=== PATIENT | male | born 1950 | race Caucasian/White ===

== ENCOUNTER 2017-10-23 19:03 | Emergency (ER) | payer MEDICARE, OTHER ==
[~2017-10-23] VITALS: Ht 180.3 cm; Wt 100.0 kg
[2017-10-23 19:13] VITALS: Ht 180.3 cm; Wt 100.0 kg
[2017-10-23] MEDS ORDERED: METOPROLOL TART50 MG PO (19:20)
[2017-10-23] MEDS ORDERED: XARELTO15 MG PO (19:20)
[2017-10-23] MEDS ORDERED: BETAPACE 120 M120 MG PO (19:21)
[2017-10-23 19:31] LABS: BASOPHILS 0.5 % (0-2); EOSINOPHILS 2.7 % (0-7); HEMATOCRIT 41.4 % (42.0-54.0); HEMOGLOBIN 14.8 g/dL (13.5-17.5); LYMPHOCYTES 41.9 % (15-50); MCH 35.8 pg (26.0-34.0); MCHC 35.7 g/dL (31.0-37.0); MCV 100.2 fL (80.0-100.0); MEAN PLATELET VOLUME 10.3 fL (7.4-10.4); MONOCYTES 11.3 % (2-11); NEUTROPHILS 43.6 % (40-80); PLATELET COUNT 173 10x3/uL (130-400); RBC 4.13 10x6/uL (4.20-6.10); RDW 12.8 % (11.5-14.5); WBC 5.5 10x3/uL (4.8-10.8)
[2017-10-23 19:40] LABS: APTT 28.5 SECONDS (22.8-39.4); INR 1.02 (0.85-1.17)
[2017-10-23 19:58] LABS: ALBUMIN 3.6 g/dL (3.4-5.0); ALKALINE PHOSPHATASE 53 U/L (46-116); ALT (SGPT) 22 U/L (10-68); BILIRUBIN - TOTAL 0.36 mg/dL (0.2-1.3); CALC OSMOLALITY 277 mosm/kg (275-300); CALCIUM 8.6 mg/dL (8.5-10.1); CARBON DIOXIDE 24.6 mmol/L (21.0-32.0); CHLORIDE - SERUM 104 mmol/L (98-107); GLUCOSE 115 mg/dL (74-106); POTASSIUM - SERUM 3.6 mmol/L (3.5-5.1); PROTEIN - SERUM 7.1 g/dL (6.4-8.2); SODIUM 140 mmol/L (136-145); UREA NITROGEN 8 mg/dL (7-18); eGFR NON AFRICAN AMERICAN 79 mL/min (90-120)
[2017-10-23 20:47] LABS: APPEARANCE CLEAR (CLEAR); BILIRUBIN NEGATIVE (NEGATIVE); COLOR YELLOW (YELLOW); GLUCOSE NEGATIVE (NEGATIVE); KETONE NEGATIVE (NEGATIVE); NITRITE NEGATIVE (NEGATIVE); PROTEIN NEGATIVE (NEGATIVE); SPECIFIC GRAVITY 1.015 (1.005-1.020); UROBILINOGEN NORMAL (NORMAL)
[2017-10-23 21:00] VITALS: BP 138/85
== END 2017-10-23 21:00 | disposition other institution (70) ==
LOC: D.ER 19:03 → EDBD 19:03 → D.ER 21:00
PROVIDERS: Emergency Medicine
DX: I66.01 Occlusion and stenosis of right middle cerebral artery (principal); R47.01 Aphasia; I48.91 Unspecified atrial fibrillation; I10 Essential (primary) hypertension

== ENCOUNTER 2017-11-01 18:17 | Emergency (ER) | payer MEDICARE ==
[~2017-11-01] VITALS: Ht 180.3 cm; Wt 75.0 kg
[~2017-11-01 18:17] MED LIST: BETAPACE 120 M120 MG PO; METOPROLOL TART50 MG PO; XARELTO15 MG PO
[2017-11-01 18:21] VITALS: Ht 180.3 cm; Wt 75.0 kg
[2017-11-01] MEDS ORDERED: ACETAMINOP80 MG/0.8 PO (18:37)
[2017-11-01] MEDS ORDERED: ELIQUIS2.5 MG PO (18:37)
[2017-11-01] MEDS ORDERED: ELIQUIS5 MG PO (18:38)
[2017-11-01] MEDS ORDERED: LIPITOR80 MG PO (18:42)
[2017-11-01] MEDS ORDERED: LIPITOR20 MG PO (18:44)
[2017-11-01 18:56] LABS: HEMATOCRIT 42.2 % (42.0-54.0); HEMOGLOBIN 14.8 g/dL (13.5-17.5); LYMPHOCYTES 26.7 % (15-50); MCHC 35.1 g/dL (31.0-37.0); MCV 99.8 fL (80.0-100.0); MEAN PLATELET VOLUME 10.7 fL (7.4-10.4); NEUTROPHILS 50.8 % (40-80); PLATELET COUNT 211 10x3/uL (130-400); RBC 4.23 10x6/uL (4.20-6.10); RDW 12.6 % (11.5-14.5); WBC 7.4 10x3/uL (4.8-10.8)
[2017-11-01 18:57] LABS: BASOPHILS 0.5 % (0-2); EOSINOPHILS 1.8 % (0-7); IMMATURE GRANULOCYTES 0.1 % (0-5)
[2017-11-01 19:01] LABS: MONOCYTES 19.8 % (2-11)
[2017-11-01 19:58] LABS: PROTIME 14.4 SECONDS (11.6-15.0)
[2017-11-01 19:59] LABS: APTT 33.7 SECONDS (22.8-39.4); INR 1.16 (0.85-1.17)
[2017-11-01] MEDS ORDERED: LANOXIN125 MCG PO ×2 (20:10→20:12)
[2017-11-01 21:12] LABS: ALBUMIN 3.8 g/dL (3.4-5.0); ALKALINE PHOSPHATASE 70 U/L (46-116); ALT (SGPT) 37 U/L (10-68); BILIRUBIN - TOTAL 0.56 mg/dL (0.2-1.3); CALC OSMOLALITY 276 mosm/kg (275-300); CALCIUM 9.3 mg/dL (8.5-10.1); CARBON DIOXIDE 28.7 mmol/L (21.0-32.0); CHLORIDE - SERUM 104 mmol/L (98-107); GLUCOSE 101 mg/dL (74-106); POTASSIUM - SERUM 4.5 mmol/L (3.5-5.1); PROTEIN - SERUM 7.4 g/dL (6.4-8.2); SODIUM 138 mmol/L (136-145); TROPONIN-I < 0.017 ng/mL (0.000-0.060); UREA NITROGEN 16 mg/dL (7-18); eGFR NON AFRICAN AMERICAN 79 mL/min (90-120)
[2017-11-01 23:12] VITALS: BP 116/84
== END 2017-11-01 23:12 | disposition home or self-care (01) ==
LOC: D.ER 18:17
PROVIDERS: Family Medicine
DX: I48.91 Unspecified atrial fibrillation (principal); Z86.73 Personal history of transient ischemic attack (TIA), and cerebral infarction without residual deficits; I10 Essential (primary) hypertension; F17.200 Nicotine dependence, unspecified, uncomplicated; I49.3 Ventricular premature depolarization

== ENCOUNTER 2017-11-02 07:53 | Emergency (ER) | payer MEDICARE ==
[~2017-11-02] VITALS: Ht 180.3 cm; Wt 72.7 kg
[~2017-11-02 07:53] MED LIST changes: +ACETAMINOP80 MG/0.8 PO; +ELIQUIS2.5 MG PO; +ELIQUIS5 MG PO; +LANOXIN125 MCG PO; +LIPITOR20 MG PO; +LIPITOR80 MG PO
[2017-11-02 08:09] VITALS: Ht 180.3 cm; Wt 72.7 kg
[2017-11-02 08:19] LABS: BASOPHILS 0.2 % (0-2); EOSINOPHILS 0.2 % (0-7); HEMATOCRIT 40.5 % (42.0-54.0); HEMOGLOBIN 14.3 g/dL (13.5-17.5); IMMATURE GRANULOCYTES 0.2 % (0-5); LYMPHOCYTES 11.3 % (15-50); MCHC 35.3 g/dL (31.0-37.0); MEAN PLATELET VOLUME 10.9 fL (7.4-10.4); MONOCYTES 12.4 % (2-11); NEUTROPHILS 75.7 % (40-80); PLATELET COUNT 236 10x3/uL (130-400); RBC 4.09 10x6/uL (4.20-6.10); RDW 12.5 % (11.5-14.5); WBC 9.2 10x3/uL (4.8-10.8)
[2017-11-02 08:39] LABS: ALBUMIN 3.9 g/dL (3.4-5.0); ALKALINE PHOSPHATASE 74 U/L (46-116); ALT (SGPT) 32 U/L (10-68); BILIRUBIN - TOTAL 0.75 mg/dL (0.2-1.3); CALC OSMOLALITY 281 mosm/kg (275-300); CALCIUM 9.2 mg/dL (8.5-10.1); CARBON DIOXIDE 25.6 mmol/L (21.0-32.0); CHLORIDE - SERUM 106 mmol/L (98-107); CREATININE - SERUM 1.1 mg/dL (0.6-1.3); GLUCOSE 123 mg/dL (74-106); PROTEIN - SERUM 7.6 g/dL (6.4-8.2); SODIUM 140 mmol/L (136-145); UREA NITROGEN 17 mg/dL (7-18); eGFR NON AFRICAN AMERICAN 71 mL/min (90-120)
[2017-11-02 08:44] LABS: POTASSIUM - SERUM 3.8 mmol/L (3.5-5.1)
[2017-11-02 08:52] LABS: CKMB 1.3 U/L (0.0-3.6); CREATINE KINASE 173 UL (21-232); PRO BNP 1583 pg/mL (0-125); TROPONIN-I < 0.017 ng/mL (0.000-0.060)
[2017-11-02 09:48] LABS: APPEARANCE CLEAR (CLEAR); BILIRUBIN NEGATIVE (NEGATIVE); COLOR YELLOW (YELLOW); GLUCOSE NEGATIVE (NEGATIVE); KETONE SMALL mg/dL (NEGATIVE); NITRITE NEGATIVE (NEGATIVE); PROTEIN 1+ mg/dL (NEGATIVE); UROBILINOGEN NORMAL (NORMAL)
[2017-11-02 09:49] LABS: AMORPHOUS SEDIMENT <1+ /lpf (NONE SEEN); EPITHELIAL CELLS OCC /hpf (0-5); MUCUS >1+ /lpf (NONE SEEN); WHITE CELLS - URINE 0-5 /hpf (0-5)
[2017-11-02 10:49] VITALS: BP 103/79
== END 2017-11-02 10:55 | disposition other institution (70) ==
LOC: D.ER 07:53
PROVIDERS: Family Medicine
DX: I63.319 Cerebral infarction due to thrombosis of unspecified middle cerebral artery (principal); R47.01 Aphasia; I48.91 Unspecified atrial fibrillation; I10 Essential (primary) hypertension